=== PATIENT | male | born 1995 | race Caucasian/White ===

== ENCOUNTER 2019-02-24 01:25 | Emergency (ER) | payer SELFPAY ==
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
[2019-02-24 01:29] VITALS: BP 122/103
--- NOTE | 2019-02-24 02:19 | RADIOLOGY IMAGING REPORT ---
FACILITY: [facility] [place] PATIENT NAME: Greg Resendez : 1995 MR: [id number] V: [id number] EXAM DATE: ORDERING PHYSICIAN: NICOLLE PACHECO TECHNOLOGIST: Location: [facility] [place] Patient: Greg Resendez : 1995 Visit/Account:[id number] Date of Sevice: 02/24/2019 CT of the facial bones and orbits: HISTORY: Injury. TECHNIQUE: Helical CT was performed without contrast. Multiplanar reconstructions are reviewed. One of the following dose optimization techniques was utilized in the performance of this exam: Autom ated exposure control; adjustment of the mA and/or kV according to the patient's size; or use of an i terative reconstruction technique. Specific details can be referenced in the facility's radiology CT exam operational policy. COMPARISON: None available. FINDINGS: Osseous structures: There is a mildly depressed fracture of the left zygomatic arch, without gross di splacement. There is no evidence of left orbital fracture. There are no signs of mandibular fracture or dislocation. The visualized skeletal structures are otherwise intact. There is normal mineralizati on. Soft Tissues: There is mild soft tissue swelling over the zygomatic fracture. No hematoma is identifi ed. Orbits: The optic globes, optic nerves, and extraocular muscles appear symmetrical and unremarkable. Sinuses and mastoids: Clear and unremarkable. IMPRESSION: Acute fracture of the left zygomatic arch. The visualized skeletal structures are otherwi se intact. Report Dictated By: Guicho Osborn MD at 02/24/2019 2:07 AM Report E-Signed By: Guicho Osborn MD at 02/24/2019 2:14 AM WSN:[id number]
== END 2019-02-24 02:34 | disposition home or self-care (01) ==
LOC: ER 01:37
DX: S02.40FA Zygomatic fracture, left side, initial encounter for closed fracture (principal); Y04.2XXA Assault by strike against or bumped into by another person, initial encounter
CPT/HCPCS: 70486; 99284